=== PATIENT | male | born 1990 | race Caucasian/White ===

== ENCOUNTER 2025-01-25 14:11 | Inpatient (IN) | payer OTHER, SELFPAY ==
--- OUTSIDE RECORDS SUMMARY | 2025-01-25 02:17 | XMS_ITS | Encounter Summary ---
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 Date/Time Associated Diagnosis Comments CBC WITH AUTO DIFFERENTIAL STAT 01/25/2025 2:45 AM EDT CBC AND DIFFERENTIAL STAT 01/25/2025 2:45 AM EDT ETHANOL STAT 01/25/2025 2:45 AM EDT ACETAMINOPHEN LEVEL STAT 01/25/2025 2 :45 AM EDT SALICYLATE LEVEL STAT 01/25/2025 2:45 AM EDT COMPREHENSIVE METABOLIC PANEL STAT 01/25/2025 2:45 AM EDT documented in this encounter Results * CBC auto differential (01/25/2025 2:45 AM EDT) [facility] Signature WBC 6.2 4.8 - 10.8 K/[facility] LAB HEMETOLOGY METHOD 01/25/2025 3:28 AM EDT [facility] ([facility] LAB RBC 5.50 4.50 - 5.50 M/[facility] LAB HEMETOLOGY METHOD 01/25/2025 3:28 AM [facility] LAB Hemoglobin 15.4 13.5 - 17.5 g/dL LAB HEMETOLOGY METHOD 01/25/2025 3:28 AM [facility] LAB Hematocrit 47.7 42.0 - 54.0 % LAB HEMETOLOGY METHOD 01/25/2025 3:28 AM [facility] LAB MCV 86.1 79.0 - 98.0 FL LAB HEMETOLOGY METHOD 01/25/2025 3:28 AM [facility] LAB MCH 27.8 27.0 - 32.0 pcg LAB HEMETOLOGY METHOD 01/25/2025 3:28 AM [facility] LAB MCHC 32.3 32.0 - 37.0 g/dL LAB HEMETOLOGY METHOD 01/25/2025 3:28 AM [facility] LAB RDW 12.8 11.0 - 15.0 % LAB HEMETOLOGY METHOD 01/25/2025 3:28 AM [facility] LAB Platelets 236 130 - 400 K/mcL LAB HEMETOLOGY METHOD 01/25/2025 3:28 AM [facility] LAB MPV 10.2 7.0 - 11.0 FL LAB HEMETOLOGY METHOD 01/25/2025 3:28 AM [facility] LAB NRBC 0.0 <1.0 % LAB HEMETOLOGY METHOD 01/25/2025 3:28 AM [facility] LAB NRBC Absolute 0.00 <0.10 K/mcL LAB HEMETOLOGY METHOD 01/25/2025 3:28 AM [facility] Neutrophils Relative 50.3 % LAB HEMETOLOGY METHOD 01/25/2025 3:28 AM [facility] Lymphocytes Relative 37.0 % LAB HEMETOLOGY METHOD 01/25/2025 3:28 AM [facility] Monocytes Relative 10.0 % LAB HEMETOLOGY METHOD 01/25/2025 3:28 AM EDT [facility] Eosinophils Relative 1.9 % LAB HEMETOLOGY METHOD 01/25/2025 3:28 AM EDT [facility] Basophils Relative 0.5 % LAB HEMETOLOGY METHOD 01/25/2025 3:28 AM EDT [facility] Immature Granulocytes Relative 0.3 % LAB HEMETOLOGY METHOD 01/25/2025 3:28 AM EDT [facility] Neutrophils Absolute 3.10 1.50 - 7.00 K/mcL LAB HEMETOLOGY METHOD 01/25/2025 3:28 AM EDT [facility] Lymphocytes Absolute 2.28 1.00 - 5.00 K/mcL LAB HEMETOLOGY METHOD 01/25/2025 3:28 AM EDT [facility] Monocytes Absolute 0.62 0.20 - 1.00 K/mcL LAB HEMETOLOGY METHOD 01/25/2025 3:28 AM EDT [facility] Eosinophils Absolute 0.12 0.00 - 0.50 K/mcL LAB HEMETOLOGY METHOD 01/25/2025 3:28 AM EDT [facility] Basophils Absolute 0.03 0.00 - 0.20 K/mcL LAB HEMETOLOGY METHOD 01/25/2025 3:28 AM EDT [facility] Immature Granulocytes Absolute 0.02 0.00 - 0.03 K/mcL LAB HEMETOLOGY METHOD 01/25/2025 3:28 AM EDT [facility] Blood Venous blood specimen / Unknown Venipuncture / Unknown 01/25/2025 2:45 AM EDT 01/25/2025 3:19 AM EDT us Sunshine Andino MD LAB BLOOD ORDERABLES Final Res ult [facility] [address] [place] [address], [place] [phone] * (ABNORMAL) Salicylate level (01/25/2025 2:45 AM EDT) Salicylate Level <1.7(L) 2.0 - 29.0 mg/dL LAB CHEMISTRY METHOD 01/25/2025 3:50 AM EDT [facility] Blood Venous blood specimen / Unknown Venipuncture / Unknown 01/25/2025 2:45 AM EDT 01/25/2025 3:19 AM EDT us Sunhsine Andino MD LAB BLOOD ORDERABLES Final Res ult Performing Organization Address [facility]/ZIP Co de Phone Number [facility] [address] [place] [address], [place] [phone] * (ABNORMAL) Acetaminophen level (01/25/2025 2:45 AM EDT) Acetaminophen Level <2.0(L) 10.0 - 30.0 mcg/mL LAB CHEMISTRY METHOD 01/25/2025 4:03 AM EDT [facility] Blood Venous blood specimen / Unknown Venipuncture / Unknown 01/25/2025 2:45 AM EDT 01/25/2025 3:19 AM EDT us Sunshine Andino MD LAB BLOOD ORDERABLES Final Res ult [facility] [address] [place] [address], [place] [phone] * Ethanol (01/25/2025 2:45 AM EDT) Ethanol Level <3 0 - 10 mg/dL LAB CHEMISTRY METHOD 01/25/2025 3:52 AM EDT [facility] Blood Venous blood specimen / Unknown Venipuncture / Unknown 01/25/2025 2:45 AM EDT 01/25/2025 3:19 AM EDT us Sunshine Andino MD LAB BLOOD ORDERABLES Final Res ult [facility] [address] [place] [address], [place] [phone] * (ABNORMAL) Comprehensive metabolic panel (01/25/2025 2:45 AM EDT) Pathologist [facility] Sodium 137 133 - 145 mmol/L LAB CHEMISTRY METHOD 01/25/2025 3:52 AM [facility] Potassium 3.8 3.5 - 5.5 mmol/L LAB CHEMISTRY METHOD 01/25/2025 3:52 AM [facility] Chloride 104 96 - 110 mmol/L LAB CHEMISTRY METHOD 01/25/2025 3:52 AM [facility] CO2 27 21 - 32 mmol/L LAB CHEMISTRY METHOD 01/25/2025 3:52 AM [facility] Anion Gap 6 3 - 11 LAB CHEMISTRY METHOD 01/25/2025 3:52 AM [facility] Glucose 88 70 - 100 mg/dL LAB CHEMISTRY METHOD 01/25/2025 3:52 AM [facility] BUN 17 5 - 25 mg/dL LAB CHEMISTRY METHOD 01/25/2025 3:52 AM [facility] Creatinine 0.87 0.70 - 1.30 mg/dL LAB CHEMISTRY METHOD 01/25/2025 3:52 AM [facility] eGFR 115 >=60 mL/min/1. 73m2 LAB CHEMISTRY METHOD 01/25/2025 3:52 AM [facility] Comment:Calculation based on the Chronic Kidney Disease Epidemiology Collaboration (CKD-EPI) equation refit without adjustment for race. BUN/Creatinine Ratio 19.5 LAB CHEMISTRY METHOD 01/25/2025 3:52 AM T [facility] Calcium 8.9 8.5 - 10.5 mg/dL LAB CHEMISTRY METHOD 01/25/2025 3:52 AM T [facility] AST (SGOT) 33 10 - 42 unit/L LAB CHEMISTRY METHOD 01/25/2025 3:52 AM [facility] ALT (SGPT) 69(H) 10 - 60 unit/L LAB CHEMISTRY METHOD 01/25/2025 3:52 AM T [facility] Alkaline Phosphatase 83 42 - 121 unit/L LAB CHEMISTRY METHOD 01/25/2025 3:52 AM [facility] Total Protein 7.2 6.0 - 8.0 g/dL LAB CHEMISTRY METHOD 01/25/2025 3:52 AM [facility] Albumin 4.0 3.2 - 5.0 g/dL LAB CHEMISTRY METHOD 01/25/2025 3:52 AM [facility] Total Bilirubin 0.5 0.0 - 1.4 mg/dL LAB CHEMISTRY METHOD 01/25/2025 3:52 AM [facility] Blood Venous blood specimen / Unknown Venipuncture / Unknown 01/25/2025 2:45 AM EDT 01/25/2025 3:19 AM EDT us Sunshine Andino MD LAB BLOOD ORDERABLES Final Res ult [facility] [address] [place] [address], documented in this encounter Visit Diagnoses Diagnosis Auditory hallucinations- Primary Hallucinations Elevated ALT measurement Housing instability after recent homelessness documented in this encounter Administered Medications Active Administered Medications - up to 3 most recent administrations Medication Order MAR Action Action Date Dose Rate Site lisinopriL (PRINIVIL,ZESTRIL) tablet 5 mg 5 mg, oral, Daily, First dose on Tue01/25/25 at 0900 Given 01/25/2025 8:38 AM EDT 5 mg documented in this encounter Discontinued Medications Medication Sig Discontinue Reason Start Date End Da te melatonin 3 mg tablet Take 10 mg by mouth at bedtime. Alternate therapy 01/25/2025 documented as of this encounter Historical Medications * This list may reflect changes made after this encounter. calcium carbonate (TUMS) 500 mg (200 mg elemental calcium) chewable tablet Chew 1 tablet (500 mg total) 1 (one) time each day if needed for indigestion or heartburn. DM/acetaminophen /doxylamine (VICKS NYQUIL NIGHTTIME RELIEF ORAL) Take 30 mL by mouth at bedtime as needed (INSOMNIA). melatonin 5 mg tablet Take 1 tablet (5 mg total) by mouth at bedtime as needed for sleep. 12/13/2024 Heartburn Relief, famotidine, 10 mg tablet Take 1 tablet (10 mg total) by mouth 2 (two) times a day if needed for heartburn. diclofenac (VOLTAREN) 1 % topical gelIndications:K NEE PAIN 12/13/2024 albuterol HFA (PROAIR HFA ; PROVENTIL HFA ; VENTOLIN HFA) 90 mcg/actuation inhaler Inhale 2 puffs by mouth every 6 (six) hours if needed for wheezing. ibuprofen (ADVIL,MOTRIN) 600 mg tabletIndication s:BACK PAIN Take 1 tablet (600 mg total) by mouth every 6 (six) hours if needed for mild pain. omeprazole OTC (PriLOSEC OTC) 20 mg EC tablet Take 1 tablet (20 mg total) by mouth 1 (one) time each day if needed (ACID REFLUX). Do not crush, chew, or split. lisinopriL (PRINIVIL,ZESTRI L) 5 mg tablet Take 1 tablet (5 mg total) by mouth 1 (one) time each day. 07/17/2024 melatonin 3 mg tablet Take 10 mg by mouth at bedtime. added in this encounter Active and Recently Administered Medications Times are shown in EDT. Scheduled Medication Order 01/23/2025 01/24/2025 01/25/2025 lisinopriL (PRINIVIL,ZESTRIL) tablet 5 mg 5 mg, oral, Daily, First dose on Tue01/25/25 at 0900 0838 (Given - Provid er: Sera Bautista RN) pantoprazole (PROTONIX) EC tablet 40 mg 40 mg, oral, Every morning before breakfast, First dose on Tue01/25/25 at 0700, Do not crush, chew, or split. 0834 (Not Given - Pr ovider: Sera Bautista RN - Reason: Patient/Resident/Agent refused - education provided ) PRN Medication Order 01/23/2025 01/24/2025 01/25/2025 melatonin tablet 10.5 mg 10.5 mg (rounded from 10 mg), oral, Nightly PRN, sleep, Starting on Tue01/25/25 at 0400 documented in this encounter Orders Medications Ordered That Porfirio ht Not Have Been Administered Count Last Ordered Date First Ordered Date melatonin tablet 10.5 mg 1 01/25/2025 pantoprazole (PROTONIX) EC tablet 40 mg 1 0 01/25/2025 Diet Count Last Ordered Date First Orde red Date ADULT DIET 1 01/25/2025 Consult Count Last Ordered Date First Orde red Date IP CONSULT TO LAYER OUT 1 01/25/2025 Precaution Count Last Ordered Date First Orde red Date SUICIDE PRECAUTIONS 1 01/25/2025 Privilege Level Count Last Ordered Date First O rdered Date PATIENT SALES FLOOR MANAGER 1 01/25/2025 documented in this encounter Care Teams Commercial Real Estate Assistant Relationship Specialty Start Date End Date Physician, Pcp Unknown PCP - General 10/26/24 documented as of this encounter
--- OUTSIDE RECORDS SUMMARY | 2025-01-25 14:20 | XMS_ITS | Encounter Summary ---
Author Organization [facility] Address [address] [place] [address] Care Team Providers Care Air Conditioning Unit Tester Name Role Phone Physician, Pcp Unknown Primary Care Provider Alisa vailable Reason for Visit * Reason Onset Date Comments To complete SIOH-Assessment & Offer Available Re sources. 01/25/2025 Encounter Details Date Type Department Care Team (Late st Contact Info) Description 01/25/2025 Telephone [facility] Worker [facility] [address] [place] [address] Edgar Lugo Social History Tobacco Use Types Packs/Day Years [...] care for your loved ones. For example, childcare worker or elderly care for an older adult? [...] EST Travel History Travel Start Travel End [place] 12/25/2024 01/25/2025 documented as of this encounter Functional Status * Are you deaf or do you have serious difficulty hearing? Answer Date of Assessment Author No 01/25/2025 3:02 AM Geoffrey Carrizales RN * Are you blind or do you have serious difficulty seeing, even when wearing glasses? Answer Date of Assessment Author No 01/25/2025 3:02 AM Geoffrey Carrizales RN * Do you have serious difficulty [...] of Assessment Author No 01/25/2025 3:02 AM [facility] Geoffrey Alvarze RN documented as of this encounter Mental Status * Because of a physical, mental, or emotional condition, do you have serious difficulty concentrating, remembering, or making decisions? (5 years old or older) Answer Entry Date Author No 01/25/2025 3:02 AM EDT Geoffrey Alvarez RN documented in this encounter Progress Notes * Edgar Lugo - 01/25/2025 11:31 AM EDT Community Health Worker Note 01/25/25 11:31 AM EDT Patient: Russ Slaughter : 1990 Age: 34 y.o. Insurance: Payor: [employer] [place] [employer] / Plan: [employer] [place] [employer] / Product Type: *No Product type* / Visit Type: Telephone Call Primary Care Doctor: Pcp Unknown Physician Social Influencers of Health Screening Completed? SIOH assessment completed with the patient. [facility] mail the patient a listing of resources for housing agencies in his local area and well patient was enrolled to [facility] PT-2 Ride for only his medical related appointments, Patient can also call his ride provider [employer] to schedule any medical ride appointments by calling or . Next Follow-up [T.B.A] - Patient will follow up with [facility] if necessary if in the need of any resources. Total Minutes Spent: 3 min Wire Products Inspector Flowsheet Needed: no Edgar Lugo, JOE, CAC, QBS [facility] ACO Case Management Community Health Worker [address] [address] Office: [phone] documented in this encounter Plan of Treatment Upcoming Encounters Date Type Department Care Team (Late st Contact Info) Description 02/28/2025 1:00 PM EDT Consult Gastroenterology - [facility] [address] [place] [address] Chris Foster MD [address] [place] [address] documented as of this encounter Interventions Community Resource Recommendations Community Resource Services Recommended Domains Addressed Status Status Reason/Outcome Date/Time Rayne Buchanan - Affordable Housing Shelter Housing, Residential Housing Housing Instability 01/25/2025 11:34 AM EDT [facility] - HUD Public Housing Program Shelter Housing, Public Housing, Residential Housing Housing Instability 01/25/2025 11:34 AM EDT [facility] - HUD Public Housing Program Shelter Housing, Public Housing, Residential Housing Housing Instability 01/25/2025 11:34 AM EDT [employer] - Affordable Housing Shelter Housing, Residential Housing Housing Instability 01/25/2025 11:34 AM EDT [place] [facility] [employer] [facility] [employer] ([place] - [employer] Help Find Housing Housing Instability 01/25/2025 11:34 AM EDT [facility] - Transitional Housing Short Term Housing Housing Instability 01/25/2025 11:34 AM EDT [facility] [employer] - Housing Opportunities for People Wit Help Find Housing Housing Instability 01/25/2025 11:34 AM EDT [facility] - Supportive Housing Project Shelter Housing, Residential Housing, Safe Housing Housing Instability 01/25/2025 11:34 AM EDT [employer] [facility] - Affordable Housing Appian Developer Housing Housing Instability 01/25/2025 11:34 AM EDT [facility] - Housing Counseling Homebuyer Education, Housing Advice Housing Instability 01/25/2025 11:34 AM EDT documented as of this encounter Visit Diagnoses Not on filedocumented in this encounter Care Teams Air Conditioning Unit Tester Relationship Specialty Start Date End Date Physician, Pcp Unknown PCP - General 10/26/24 documented as of this encounter
--- OUTSIDE RECORDS SUMMARY | 2025-01-25 14:20 | XMS_ITS | Clinical Summary ---
Author Organization [facility] Address [address] [place] [address] Phone Care Team Providers Care Industrial Relations Analyst Name Role Phone Physician, Pcp Unknown Primary Care Provider Alisa vailable Allergies Active Allergy Reactions Criticality Noted Date Comments Amantadine Hcl Other 11/20/2009 Facial twitches Divalproex Anxiety 07/21/2024 Risperidone Hallucinations 07/21/2024 Medications lisinopriL (PRINIVIL,ZEST RIL) 5 mg tablet Take 1 tablet (5 mg total) by mouth 1 (one) time each day. 5 Active omeprazole OTC (PriLOSEC OTC) 20 mg EC tablet Take 1 tablet (20 mg total) by mouth 1 (one) time each day if needed (ACID REFLUX). Do not crush, chew, or split. Active ibuprofen (ADVIL,MOTRIN) 600 mg tabletIndicati ons:BACK PAIN Take 1 tablet (600 mg total) by mouth every 6 (six) hours if needed for mild pain. Active albuterol HFA (PROAIR HFA ; PROVENTIL HFA ; VENTOLIN HFA) 90 mcg/actuation inhaler Inhale 2 puffs by mouth every 6 (six) hours if needed for wheezing. Active diclofenac (VOLTAREN) 1 % topical gelIndications :KNEE PAIN 5 Active Heartburn Relief, famotidine, 10 mg tablet Take 1 tablet (10 mg total) by mouth 2 (two) times a day if needed for heartburn. Active melatonin 5 mg tablet Take 1 tablet (5 mg total) by mouth at bedtime as needed for sleep. 5 Active DM/acetaminoph en/doxylamine (VICKS NYQUIL NIGHTTIME RELIEF ORAL) Take 30 mL by mouth at bedtime as needed (INSOMNIA). Active calcium carbonate (TUMS) 500 mg (200 mg elemental calcium) chewable tablet Chew 1 tablet (500 mg total) 1 (one) time each day if needed for indigestion or heartburn. Active omeprazole (PriLOSEC) [address] capsuleIndicat ions:Reflux gastritis Take 1 capsule (20 mg total) by mouth 1 (one) time each day. Do not crush or chew. 30 each 5 025 melatonin 3 mg tablet Take 10 mg by mouth at bedtime. 025 Discontinu ed(Alterna te therapy) Active Problems No known active problems Encounters Date Type Department Care Team Description 01/25/2025 2:17 AM EDT - 01/25/2025 1:45 PM EDT Emergency [facility] Emergency [address] [place] [phone] Sunshine Andino MD Gordon, Ruth, MD Auditory hallucinations (Primary Dx); Elevated ALT measurement; Housing instability after recent homelessness Discharge Disposition: [facility] 01/25/2025 Telephone [facility] [address] [place] [phone] Edgar Lugo 01/11/2025 2:30 PM EDT Ancillary Procedure [facility] [address] [place] [address] [place] [phone] Chest pain, unspecified type 12/18/2024 9:08 PM EDT - 12/18/2024 9:21 PM EDT Emergency [facility] Emergency [address] [place] [phone] Discharge Disposition: Home or Self Care 12/01/2024 1:03 AM EDT - 12/01/2024 3:59 AM EDT Emergency [facility] Emergency [address] [place] [phone] Rome Michael MD Chest pain, unspecified type (Primary Dx); Reflux gastritis Discharge Disposition: Home or Self Care 10/26/2024 12:37 AM EDT - 10/26/2024 2:39 AM EDT Emergency [facility] Emergency [address] [place] [address] Discharge Disposition: Home or Self Care from Last 3 Months Surgical History Surgery Date Site/Laterality Comments OTHER SURGICAL HISTORY PROCEDURE: SKIN GRAFT <100SQCM; COMMENT: fell off skate board Medical History Medical History Date Comments Knee pain, right 02/26/2011 DX:Knee pain, r ight Chronic back pain 01/30/2010 DX:Chronic puma k pain Asthma Anxiety Hypertension Family History Relation Name Status Comments Brother Alive Father Alive Mother Alive oa, fibromyalgi a, asthma, graves Social History Tobacco Use Types Packs/Day Years Used Date Smoking Tobacco: Every Day Cigarettes Smokeless Tobacco: Never Tobacco Cessation:Ready to Q uit: No; Counseling Given: Not Answered Alcohol Use Standard Drinks/Week Comments No 0 [...] for your loved ones. For example, childcare provider or elderly care for an older adult? [...] EST Travel History Travel Start Travel End [place] 12/25/2024 01/25/2025 Obstetrics History Last Filed Vital Signs Vital Sign Reading [...] Mass Index 50.27 01/25/2025 2:48 AM EDT Plan of Treatment Upcoming Encounters Date Type Department Care Team (Late st Contact Info) Description 02/28/2025 1:00 PM EDT Consult Gastroenterology - [place] [phone] [facility] [address] [facility] [address] [place] [address] Chris Foster MD [address] [place] [address] Health Maintenance Due Date Last Done Comments Hepatitis A Vaccines (1 of 2 - Risk 2-dose series) 2008 Hepatitis B Vaccines (1 of 3 - 19+ 3-dose series) 2008 Pneumococcal Vaccine: Pediat rics (0 to 5 Years) and At-Risk Patients (6 to 49 Years) (1 of 2 - PCV) 2008 Cholesterol Screening (Lipid Panel) 04/10/2022 HIV Screening 04/10/2022 Hepatitis C Screening 04/10/2022 Depression Screening 05/09/2024 COVID-19 Vaccine (1 - 2023-2 5 season) 2025 Influenza Vaccine (#1) 2025 Social Influencers of Health Screening 01/25/2026 01/25/2025 DTaP,Tdap,and Td Vaccines (2 - Td or Tdap) 05/18/2034 05/18/2024 RSV Immunization Adult Patie nts (1 - 1-dose 75+ series) 2064 HIB Vaccines Aged Out No longer eligi ble based on patient's age to complete this topic HPV Vaccines Aged Out No longer eligi ble based on patient's age to complete this topic IPV Vaccines Aged Out No longer eligi ble based on patient's age to complete this topic MMR Vaccines Aged Out No longer eligi ble based on patient's age to complete this topic Meningococcal ACWY Vaccine Aged Out N o longer eligible based on patient's age to complete this topic Meningococcal B Vaccine Aged Out No l onger eligible based on patient's age to complete this topic RSV Immunization Patients Un james 20 months Aged Out No longer eligible b ased on patient's age to complete this topic Varicella Vaccines Aged Out No longer eligible based on patient's age to complete this topic Interventions Community Resource Recommendations Community Resource Services Recommended Domains Addressed Status Status Reason/Outcome Date/Time Rayne Buchanan [facility] [employer] Housing, Residential Housing Housing Instability 01/25/2025 11:34 AM EDT [facility] - HUD Public Housing Program [employer] Housing, Public Housing, Residential Housing Housing Instability 01/25/2025 11:[address] [facility] - HUD Public Housing Program [employer] Housing, Public Housing, Residential Housing Housing Instability 01/25/2025 11:34 AM EDT [facility] - Affordable Housing [facility] Housing, Residential Housing Housing Instability 01/25/2025 11:34 AM EDT [place] [facility] [employer] [facility] ([facility]) - Emergenc Help Find Housing Housing Instability 01/25/2025 11:34 AM EDT [facility] - Transitional Housing Short Term Housing Housing Instability 01/25/2025 11:34 AM EDT [facility] [employer] ([employer]) - Housing Opportunities for People Wit Help Find Housing Housing Instability 01/25/2025 11:34 AM EDT [facility] - Supportive Housing Project [employer] Housing, Residential Housing, Safe Housing Housing Instability 01/25/2025 11:34 AM EDT [employer] ([employer]) - Affordable Housing Gasoline [employer] Housing Housing Instability 01/25/2025 11:34 AM EDT [facility] - Housing Counseling Homebuyer Education, Housing Advice Housing Instability 01/25/2025 11:34 AM EDT from Last 12 Months Procedures Procedure Name Priority Date/Time Associated Diagnosis Comments CBC WITH AUTO DIFFERENTIAL STAT 01/25/2025 2:45 AM EDT SALICYLATE LEVEL STAT 01/25/2025 2:45 AM EDT ACETAMINOPHEN LEVEL STAT 01/25/2025 2 :45 AM EDT ETHANOL STAT 01/25/2025 2:45 AM EDT COMPREHENSIVE METABOLIC PANEL STAT 01/25/2025 2:45 AM EDT CBC AND DIFFERENTIAL STAT 01/25/2025 2:45 AM EDT STRESS ECHOCARDIOGRAM EXERCISE WITH CONTRAST Routine 01/11/2025 3:03 PM EDT Chest pain, unspecified type ECG ANNOTATED 12/03/2024 TROPONIN I HIGH SENSITIVITY Timed 12/01/2024 2:12 AM EDT XR CHEST 2 VIEWS STAT 12/01/2024 1:29 AM EDT CBC WITH AUTO DIFFERENTIAL STAT 12/01/2024 1:23 AM EDT B-TYPE NATRIURETIC PEPTIDE STAT 12/01/2024 1:23 AM EDT MAGNESIUM STAT 12/01/2024 1:23 AM EDT LIPASE STAT 12/01/2024 1:23 AM EDT COMPREHENSIVE METABOLIC PANEL STAT 12/01/2024 1:23 AM EDT CBC AND DIFFERENTIAL STAT 12/01/2024 1:23 AM EDT TROPONIN I HIGH SENSITIVITY Timed 12/01/2024 1:23 AM EDT ECG 12-LEAD STAT 12/01/2024 1:22 AM EDT from Last 3 Months Results * CBC auto differential (01/25/2025 2:45 AM EDT) Only the most recent of2 resultswithin the time period is included. WBC 6.2 4.8 - 10.8 K/mcL LAB HEMETOLOGY METHOD 01/25/2025 3:28 AM EDT [facility] RBC 5.50 4.50 - 5.50 M/mcL LAB HEMETOLOGY METHOD 01/25/2025 3:28 AM EDT [facility] Hemoglobin 15.4 13.5 - 17.5 g/dL LAB HEMETOLOGY METHOD 01/25/2025 3:28 AM EDT [facility] Hematocrit 47.7 42.0 - 54.0 % LAB HEMETOLOGY METHOD 01/25/2025 3:28 AM EDT [facility] MCV 86.1 79.0 - 98.0 FL LAB HEMETOLOGY METHOD 01/25/2025 3:28 AM EDT [facility] MCH 27.8 27.0 - 32.0 pcg LAB HEMETOLOGY METHOD 01/25/2025 3:28 AM [facility] MCHC 32.3 32.0 - 37.0 g/dL LAB HEMETOLOGY METHOD 01/25/2025 3:28 AM [facility] RDW 12.8 11.0 - 15.0 % LAB HEMETOLOGY METHOD 01/25/2025 3:28 AM [facility] Platelets 236 130 - 400 K/mcL LAB HEMETOLOGY METHOD 01/25/2025 3:28 AM [facility] MPV 10.2 7.0 - 11.0 FL LAB HEMETOLOGY METHOD 01/25/2025 3:28 AM [facility] NRBC 0.0 <1.0 % LAB HEMETOLOGY METHOD 01/25/2025 3:28 AM [facility] NRBC Absolute 0.00 <0.10 K/mcL LAB HEMETOLOGY METHOD 01/25/2025 3:28 AM [facility] Neutrophils Relative 50.3 % LAB HEMETOLOGY METHOD 01/25/2025 3:28 AM [facility] Lymphocytes Relative 37.0 % LAB HEMETOLOGY METHOD 01/25/2025 3:28 AM [facility] Monocytes Relative 10.0 % LAB HEMETOLOGY METHOD 01/25/2025 3:28 AM [facility] Eosinophils Relative 1.9 % LAB HEMETOLOGY METHOD 01/25/2025 3:28 AM [facility] Basophils Relative 0.5 % LAB HEMETOLOGY METHOD 01/25/2025 3:28 AM [facility] Immature Granulocytes Relative 0.3 % LAB HEMETOLOGY METHOD 01/25/2025 3:28 AM EDT [facility] Neutrophils Absolute 3.10 1.50 - 7.00 K/[facility] LAB HEMETOLOGY METHOD 01/25/2025 3:28 AM EDT [facility] Lymphocytes Absolute 2.28 1.00 - 5.00 K/[facility] LAB HEMETOLOGY METHOD 01/25/2025 3:28 AM EDT [facility] Monocytes Absolute 0.62 0.20 - 1.00 K/mcL LAB HEMETOLOGY METHOD 01/25/2025 3:28 AM EDT [facility] Eosinophils Absolute 0.12 0.00 - 0.50 K/[facility] LAB HEMETOLOGY METHOD 01/25/2025 3:28 AM EDT [facility] Basophils Absolute 0.03 0.00 - 0.20 K/mcL LAB HEMETOLOGY METHOD 01/25/2025 3:28 AM EDT [facility] Immature Granulocytes Absolute 0.02 0.00 - 0.03 K/mcL LAB HEMETOLOGY METHOD 01/25/2025 3:28 AM EDT [facility] Blood Venous blood specimen / Unknown Venipuncture / Unknown 01/25/2025 2:45 AM EDT 01/25/2025 3:19 AM EDT us Sunshine Andino MD LAB BLOOD ORDERABLES Final Res ult [facility] [address] [place] [address], * Ethanol (01/25/2025 2:45 AM EDT) Ethanol Level <3 0 - 10 mg/dL LAB CHEMISTRY METHOD 01/25/2025 3:52 AM EDT [facility] Blood Venous blood specimen / Unknown Venipuncture / Unknown 01/25/2025 2:45 AM EDT 01/25/2025 3:19 AM EDT Sunshine Andino MD LAB BLOOD ORDERABLES Final Res ult Performing Organization Address [facility]/ZIP Co de Phone Number [facility] [address] [place] [address], [place] [phone] * (ABNORMAL) Acetaminophen level (01/25/2025 2:45 AM EDT) Acetaminophen Level <2.0(L) 10.0 - 30.0 mcg/mL LAB CHEMISTRY METHOD 01/25/2025 4:03 AM EDT [facility] Blood Venous blood specimen / Unknown Venipuncture / Unknown 01/25/2025 2:45 AM EDT 01/25/2025 3:19 AM EDT Sunshine Andino MD LAB BLOOD ORDERABLES Final Res ult Performing Organization Address [facility] de Phone Number [facility] [address] [place] [address], [place] [phone] * (ABNORMAL) Salicylate level (01/25/2025 2:45 AM EDT) Salicylate Level <1.7(L) 2.0 - 29.0 mg/dL LAB CHEMISTRY METHOD 01/25/2025 3:50 AM EDT [facility] Blood Venous blood specimen / Unknown Venipuncture / Unknown 01/25/2025 2:45 AM EDT 01/25/2025 3:19 AM EDT us Sunshine Andino MD LAB BLOOD ORDERABLES Final Res ult Performing Organization Address City/[facility]/ZIP Co de Phone Number [facility] [address] [place] [address], [place] [phone] * (ABNORMAL) Comprehensive metabolic panel (01/25/2025 2:45 AM EDT) Only the most recent of2 resultswithin the time period is included. Sodium 137 133 - 145 mmol/L LAB CHEMISTRY METHOD 01/25/2025 3:52 AM [facility] Potassium 3.8 3.5 - 5.5 mmol/L LAB CHEMISTRY METHOD 01/25/2025 3:52 AM [facility] Chloride 104 96 - 110 mmol/L LAB CHEMISTRY METHOD 01/25/2025 3:52 AM [facility] CO2 27 21 - 32 mmol/L LAB CHEMISTRY METHOD 01/25/2025 3:52 AM [facility] Anion Gap 6 3 - 11 LAB CHEMISTRY METHOD 01/25/2025 3:52 AM [facility] Glucose 88 70 - 100 mg/dL LAB CHEMISTRY METHOD 01/25/2025 3:52 AM [facility] BUN 17 5 - 25 mg/dL LAB CHEMISTRY METHOD 01/25/2025 3:52 AM [facility] Creatinine 0.87 0.70 - 1.30 mg/dL LAB CHEMISTRY METHOD 01/25/2025 3:52 AM [facility] eGFR 115 >=60 mL/min/1. 73m2 LAB CHEMISTRY METHOD 01/25/2025 3:52 AM [facility] Comment:Calculation based on the Chronic Kidney Disease Epidemiology Collaboration (CKD-EPI) equation refit without adjustment for race. BUN/Creatinine Ratio 19.5 LAB CHEMISTRY METHOD 01/25/2025 3:52 AM [facility] Calcium 8.9 8.5 - 10.5 mg/dL LAB CHEMISTRY METHOD 01/25/2025 3:52 AM [facility] AST (SGOT) 33 10 - 42 unit/L LAB CHEMISTRY METHOD 01/25/2025 3:52 AM [facility] ALT (SGPT) 69(H) 10 - 60 unit/L LAB CHEMISTRY METHOD 01/25/2025 3:52 AM EDT [facility] Alkaline Phosphatase 83 42 - 121 unit/L LAB CHEMISTRY METHOD 01/25/2025 3:52 AM EDT [facility] Total Protein 7.2 6.0 - 8.0 g/dL LAB CHEMISTRY METHOD 01/25/2025 3:52 AM EDT [facility] Albumin 4.0 3.2 - 5.0 g/dL LAB CHEMISTRY METHOD 01/25/2025 3:52 AM EDT [facility] Total Bilirubin 0.5 0.0 - 1.4 mg/dL LAB CHEMISTRY METHOD 01/25/2025 3:52 AM EDT [facility] Blood Venous blood specimen / Unknown Venipuncture / Unknown 01/25/2025 2:45 AM EDT 01/25/2025 3:19 AM EDT us Sunshine Andino MD LAB BLOOD ORDERABLES Final Res ult [facility] [address] [place] [address], * (ABNORMAL) STRESS ECHOCARDIOGRAM EXERCISE WITH CONTRAST (01/11/2025 3:03 PM EDT) Target HR 157 bpm CV PACS STRESS Baseline HR 88 bpm CV PACS STRESS Peak HR 161 bpm CV PACS STRESS Estimated workload 7.1 METS CV PACS STRESS Percent HR 87 % CV PACS STRESS Exercise/injec tion duration (min) 5 min CV PACS STRESS Exercise/injec tion duration (sec) 59 sec CV PACS STRESS Max HR Percent 87 % CV PA CS STRESS Baseline SBP 152 mmHg CV PACS STRESS Baseline DBP 88 mmHg CV PACS STRESS Peak SBP 190 mmHg CV PACS STRESS Peak DBP 98 mmHg CV PACS STRESS Rate Pressure Product 30,590.0 mmHg*bpm CV PACS STRESS LVIDD 5.9(A) 4.2 - 5.8 cm CV PACS STRESS LVPWD 0.9 0.6 - 1.0 cm CV PACS STRESS IVSD 1.0 0.6 - 1.0 cm CV PACS STRESS LV Mass 2D 224(A) 96 - 200 g CV PACS STRESS Relative Wall Thickness ratio 0.32 0.24 - 0.42 CV PACS STRESS Anatomical Region Laterality Modality Ultrasound Narrative 01/21/2025 1:35 PM EDT Resting echo showed mildly dilated left ventricle with normal wall thickness and systolic function. Normal regional wall motion with an ejection fraction of 60 to 65%. Exercise stress test was performed. The patient was only able to exercise for 5 minutes and 59 seconds achieving 87% of max predicted heart rate and a 7.1 METS workload. Exercise capacity was poor for age and gender. Normal blood pressure response. There were no ischemic ECG changes or arrhythmias noted with exercise. The patient stopped due to fatigue and shortness of breath. There was appropriate augmentation of all regional wall segments with stress. The left ventricular cavity did not dilate with stress. Normal exercise stress echocardiogram without evidence of ischemia or infarction at a diagnostic heart rate. Patient's exercise capacity is poor for age and gender. Left Ventricle Left ventricle cavity is mildly dilated. Wall thickness is normal. Systolic function is normal with an ejection fraction of 60-65%. There are no regional LV wall motion abnormalities. Right Ventricle Right ventricle cavity appears normal. Systolic function is normal. Study Details Overall the study quality was technically difficult. Stress Findings A Yrn protocol stress test was performed. Overall, the patient's exercise capacity was poor. The patient reached stage 2. Total stress time was 5 min and 59 sec. The test was stopped because the patient experienced fatigue and shortness of breath. The patient's hemodynamic response was adequate for diagnosis. Blood pressure demonstrated a normal response. Heart rate demonstrated a normal response. Onset of symptoms occurred at Stage 2 of the protocol. The patient reported shortness of breath during the stress test. ECG 34-year-old male who is seen in the emergency room for chest discomfort, has history of hypertension, hyperlipidemia, former cigarette smoker, and positive family history for CAD, here to rule out ischemia. Patient not on lisinopril during testing. Baseline EKG: Normal sinus rhythm There were no arrhythmias during stress. There were no arrhythmias during recovery. The result of the stress ECG was negative for ischemia. Echo Post Stress Left ventricular cavity size decreased from baseline. Left ventricular systolic function improved from baseline. Normal wall motion, unchanged from baseline. Nuclear Measurements The study is negative and shows no echocardiographic evidence of ischemia. Rome Michael MD CV ECHO PROCEDURES Final Re sult * ECG-Annotated (12/03/2024) Provider Onbase ECG ORDERABLES Final Result * Troponin I high sensitivity (12/01/2024 2:12 AM EDT) Only the most recent of2 resultswithin the time period is included. High Sensitivity Troponin I 7 <=79 ng/L LAB CHEMISTRY METHOD 12/01/2024 2:57 AM EDT [facility] Blood Venous blood specimen / Unknown Venipuncture / Unknown 12/01/2024 2:12 AM EDT 12/01/2024 2:22 AM EDT Narrative [facility] - 12/01/2024 2:57 AM EDT High levels of biotin in samples may falsely decrease hsTroponin values. Use caution when interpreting hsTroponin results in patients taking biotin who exhibit renal impairment (eGFR <60) or in patients taking more than 20 mg/day of biotin. Rome Michael MD LAB BLOOD ORDERABLES Final Result [facility] [address] [place] [address], [place] [phone] * XR Chest 2 Views (12/01/2024 1:29 AM EDT) Anatomical Region Laterality Modality Body Radiographic Lynnette ging 12/01/2024 9:12 AM EDT Impressions 12/01/2024 9:13 AM EDT Impression: Stable radiographic appearance of the chest. No active pulmonary process identified. [employer] [place] ([id number]) -------- FINAL REPORT -------- Dictated By: Swathi Alaniz Dictated Date: 12/01/2024 09:12 ET Assigned Physician: Swathi Alaniz Reviewed and Electronically Signed By: Swathi Alaniz Signed Date: 12/01/2024 09:13 ET Workstation ID: [id number] Transcribed By: Self Edit Transcribed Date: 12/01/2024 09:12 ET Narrative 12/01/2024 9:13 AM EDT History: Chest pain. Comparison: 07/09/24 Findings: PA and lateral views. This is a poor inspiration, similar to previous. The cardiac silhouette remains normal in size. The jose d are not enlarged. The pulmonary vascularity is within normal limits. The lungs are clear. The costophrenic angles are sharp. Procedure Note Swathi Alaniz MD - 12/01/2024 History: Chest pain. Comparison: 07/09/24 Findings: PA and lateral views. This is a poor inspiration, similar to previous. Thecardiac silhouette remains normal in size. The jose d are not enlarged. Thepulmonary vascularity is within normal limits. The lungs are clear. Thecostophrenic angles are sharp. IMPRESSION: Impression: Stable radiographic appearance of the chest. No active pulmonary processidentified. [employer] PA ([id number]) -------- FINAL REPORT -------- Dictated By: Swathi Alaniz Dictated Date: 12/01/2024 09:12 ET Assigned Physician: Swathi Alaniz Reviewed and Electronically Signed By: Swathi Alaniz Signed Date: 12/01/2024 09:13 ET Workstation ID: [id number] Transcribed By: Self Edit Transcribed Date: 12/01/2024 09:12 ET us Rome Michael MD IMG XR PROCEDURES Final Res ult * B-type natriuretic peptide (12/01/2024 1:23 AM EDT) BNP 12 <=100 pcg/mL LAB CHEMISTRY METHOD 12/01/2024 2:56 AM EDT [facility] Blood Venous blood specimen / Unknown Venipuncture / Unknown 12/01/2024 1:23 AM EDT 12/01/2024 2:22 AM EDT Rome Michael MD LAB BLOOD ORDERABLES Final Result Performing Organization Address [facility]/ZIP Co de Phone Number [facility] [address] [place] [address], [place] [phone] * Magnesium (12/01/2024 1:23 AM EDT) Magnesium 2.2 1.9 - 2.6 mg/dL LAB CHEMISTRY METHOD 12/01/2024 2:54 AM EDT [facility] Blood Venous blood specimen / Unknown Venipuncture / Unknown 12/01/2024 1:23 AM EDT 12/01/2024 2:22 AM EDT Rome Michael MD LAB BLOOD ORDERABLES Final Result Performing Organization Address [facility]/ZIP Co de Phone Number [facility] [address] [place] [address], [place] [phone] * Lipase (12/01/2024 1:23 AM EDT) Lipase 20 13 - 75 unit/L LAB CHEMISTRY METHOD 12/01/2024 2:54 AM EDT [facility] Blood Venous blood specimen / Unknown Venipuncture / Unknown 12/01/2024 1:23 AM EDT 12/01/2024 2:22 AM EDT Rome Michael MD LAB BLOOD ORDERABLES Final Result [facility] [address] [place] [address], [place] [phone] * ECG 12 lead (12/01/2024 1:22 AM EDT) Ventricular Rate ECG 86 BPM GEMUSE Atrial Rate 86 BPM GEMUSE P-R Interval 168 ms GEMUSE QRS Duration 90 ms GEMUSE Q-T Interval 376 ms GEMUSE QTc 449 ms GEMUSE P Wave [place] 47 degrees GEMUSE R [place] 15 degrees GEMUSE T [place] 33 degrees GEMUSE ECG Interpretation Normal sinus rhythm Normal ECG When compared with ECG of 09-JUL-2024 19:43, Non-specifi c change in ST segment in Anterior leads Confirmed by Melissa AGRAWAL JAMES ([id number]) on 12/01/2024 5:34:34 PM GEMUSE 12/01/2024 1:22 AM EDT 12/01/2024 5:34 PM EDT us Rome Michael MD ECG ORDERABLES Final Resul t GEMUSE from Last 3 Months Insurance [facility] MEDICAID ADVANTAGE [address] [place] [address] Care Teams Industrial Relations Analyst Relationship Specialty Start Date End Date Physician, Pcp Unknown PCP - General 10/26/24
--- OUTSIDE RECORDS SUMMARY | 2025-01-25 14:20 | XMS_ITS ---
Author Organization [facility] Address [address] [place] [address] Phone Care Team Providers Care After School Tutor Name Role Phone Physician, Pcp Unknown Primary Care Provider Alisa vailable Community Health Worker Program Status:Ongoing (Active) Start date:01/25/2025 Enrollment date:01/25/2025 Enrollment reason:ACO Current support & services provided:Adult Related service episodes:[facility] - Housing (Active), [facility] - Transportation (Active) Overview Community Health Worker Program Case Team Name Relationship Phone Edgar Lugo Community Health Worker(Responsi ble Staff) Continued Care and Services Coordination
--- OUTSIDE RECORDS SUMMARY | 2025-01-25 14:20 | XMS_ITS ---
Author Organization [facility] Address [address] [place] [address] Phone Care Team Providers Care Calender Wind Up Helper Name Role Phone Physician, Pcp Unknown Primary Care Provider Alisa vailable [facility] - Transportation Status:Ongoing (Active) Start date:01/25/2025 Enrollment date:01/25/2025 Enrollment reason:ACO Related social drivers of health:Transportation Related program episode:Community Health Worker Program (Active) Overview Community Health Worker Program - Transportation Service Episode Case Team Name Relationship Phone Edgar Lugo Community Health Worker(Responsi ble Staff) Continued Care and Services Coordination
--- OUTSIDE RECORDS SUMMARY | 2025-01-25 14:20 | XMS_ITS ---
Author Organization [facility] Address [address] [place] [address] Phone Care Team Providers Care Flare Breaker Name Role Phone Physician, Pcp Unknown Primary Care Provider Alisa vailable [facility] - Housing Status:Ongoing (Active) Start date:01/25/2025 Enrollment date:01/25/2025 Enrollment reason:ACO Related social drivers of health:Housing Instability Related program episode:Community Health Worker Program (Active) Overview Housing service of Community Health Worker Program Case Team Name Relationship Phone Edgar Lugo Community Health Worker(Responsi ble Staff) Continued Care and Services Coordination
[2025-01-25 15:00] VITALS: BP 156/93; PULSE 91; RESP 18; TEMP 36.6; O2SAT 96
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
[2025-01-25 17:59] VITALS: BMI 46.7
[2025-01-25 20:00] VITALS: RESP 16
[2025-01-26 08:00] VITALS: BP 139/81; PULSE 70; TEMP 36.4; O2SAT 96
--- NOTE | 2025-01-26 09:54 | HO.PSYADMNOT ---
HPI Date of Service: 01/26/25 Chief Complaint: SI Sources of Information: patient interviewed, chart reviewed and crisis/core team assessment reviewed HPI Subjective Notes: Willett Warning and 3 Day Narrative: pt seen on 01/26/25 at 9:55am Patient is a 34-year-old male with history of depression, anxiety, Level 1 sex offender, who presents for SI. Patient has not been on medications since adolescence. He reports history of depression and anxiety over the past years but said he has been able to cope with it without medications and that it is overall mild to moderate.? A week ago he went to visit his friend in [place] and thoroughly enjoyed himself.? Upon return however his depression spiked as he compared his life here in [place], where he is homeless, to his experience in [place]. Patient said he thinking about all his problems started having suicidal thoughts; he had brief AH had the thought what if I just ended my life right now? he says he started walking to the bridge, considering jumping but his father held him back.? He reports that he realized he did not want to but that he needed help so self presented to the ED. patient currently denies any SI now. Patient denies history of manic episodes and adulthood; denies drug or alcohol use; denies AVH or paranoid ideation Past Psychiatric History: No history of psychiatric admissions since adolescence Patient was on several medication trials during adolescence including Depakote, Risperdal and Geodon. 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 Diagnostics Vital Signs (24Hr): Vital Signs - 24 hr 01/25/25 15:00 01/25/25 20:00 01/26/25 08:00 Temperature 97.8 F 97.5 F Pulse Rate 91 70 Respiratory Rate 18 16 Blood Pressure 156/93 H 139/81 Pulse Oximetry 96 96 Oxygen Delivery Method Room Air Room Air BMI result Body Mass Index 46.7 Labs 01/26/25 10:08 Meds/Allergies Meds Home Medications ?Medication ?Instructions ?Recorded ?Confirmed ?Type diclofenac sodium 1 % topical gel See Rx Instructions .Route .COMPLEX 01/25/25 01/25/25 History lisinopril 5 mg tablet 5 mg PO DAILY 01/25/25 01/25/25 History melatonin 5 mg tablet 10 mg PO BEDTIME insomnia 01/25/25 01/25/25 History omeprazole 20 mg capsule,delayed 20 mg PO ONCE 01/25/25 01/25/25 History release Allergies Allergies Allergy/AdvReac Type Severity Reaction Status Date / Time amantadine Allergy Unknown Verified 01/25/25 17:59 divalproex sodium (From Allergy Unknown Verified 01/25/25 17:59 Depakote) risperidone Allergy Unknown Verified 01/25/25 17:59 Mental Status Exam Mental Status Exam Narrative: Pt is alert and oriented; behavior is cooperative, isolative, calm; patient is not in distress; dressed in hospital attire, unkempt, malodorous; mood is described as better and affect congruent; eye contact appropriate; Speech is normal rate, volume and prosody and not pressured; some psychomotor retardation present; thought process is organized and goal directed; Thought content is on tx; otherwise pertinent to relevant topics and without any delusional content, paranoid ideations or grandiosity; denies any SI/HI. Denies AVH and there is no evidence of perceptual disturbance. Patients insight and judgment impaired but seem to be improved Assessment & Plan Assessment & Plan (1) MDD (major depressive disorder), recurrent episode, moderate: Status: Acute Code(s): F33.1 - Major depressive disorder, recurrent, moderate Plan Patient is a 34-year-old male with history of depression, anxiety, Level 1 sex offender, who presents for SI. Patient has not been on medications since adolescence. He reports history of depression and anxiety over the past years but said he has been able to cope with it without medications and that it is overall mild to moderate.? A week ago he went to visit his friend in [place] and thoroughly enjoyed himself.? Upon return however his depression spiked as he compared his life here in [place], where he is homeless, to his experience in [place]. Patient said he thinking about all his problems started having suicidal thoughts; he had brief AH had the thought what if I just ended my life right now? he says he started walking to the bridge, considering jumping but his father held him back.? He reports that he realized he did not want to but that he needed help so self presented to the ED. patient currently denies any SI now. Patient denies history of manic episodes and adulthood; denies drug or alcohol use; denies AVH or paranoid ideation Formulation/clinical reasoning: Patient reports ongoing [id number] depression; says however that he is typically able to cope with it and that he thinks this spiking depression was just situational, looking at his life compared to how good a time he was having an [place] with his friend. Patient says that the SI is now fully resolved. 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 Does however ask for trazodone q.h.s.. Patient says that mostly he needed to come to the hospital to make sure that he was going to be able to stabilize after his brief SI but as he seems to be feeling better, he thinks that he will be able to discharge soon. Regarding childhood, during which time patient was on mood stabilizers and antipsychotics, it is not clear what was going on at that time but patient has been off medications for over a decade reportedly without troubles, psychosis or ramiro. Plan: CV Q 15 minute checks Trazodone scheduled q.h.s. Patient is considering other medications for depression anxiety Patient educated on: diagnosis and medication risk/benefits Informed Consent: understands Reason for continued inpatient stay Substantial Risk for: rapid decompensation Statement Statement: I have reviewed the history and physical and performed a pertinent examination on my patient. No changes have occurred unless specified. If the History and Physical was not performed prior to admission, the Hospitalist's service will be consulted for completing the admission physical. Time Spent With Patient Time: Total time managing care of this patient today ____ minutes.
[2025-01-26 10:36] LABS: Hemoglobin A1C 146.5098 umol/L; Total Hemoglobin (HGBA1C) 3894.9571 umol/L
[2025-01-26 10:52] LABS: Alanine Aminotransferase 80 U/L (0-40); Albumin Level 4.1 g/dL (3.5-5.0); Alkaline Phosphatase 73 U/L (39-117); Anion Gap 10 (12-20); Aspartate Amino Transferase 37 U/L (5-37); Blood Urea Nitrogen 11 mg/dL (9-16); Calcium 8.8 mg/dL (8.4-10.2); Carbon Dioxide 27 mmol/L (22-29); Chloride 107 mmol/L (96-108); Cholesterol 204 mg/dL (<200); Creatinine Clr Calc Pharmacy 190.2; Estimated Glomerular Filt Rate > 60; HDL Cholesterol 40 mg/dL (>40); Potassium 4.3 mmol/L (3.3-5.1); Sodium 140 mmol/L (135-145); Total Protein 6.8 g/dL (6.5-8.0); Triglycerides 176 mg/dL (<150)
--- NOTE | 2025-01-26 10:53 | HO.PM.IMCN ---
History of Present Illness Data of Consult Service Date: 01/26/25 Requesting physician: Ric Asif Primary Care Provider: Unknown Physician HPI This is a 34-year-old male with a history of HTN, mild intermittent asthma who was admitted to for suicidal ideation. The hospitalists were asked to see him in consultation for routine medical consultation. Patient has no active medical issues at this time. Review of Systems Review of Systems: Yes all other systems are reviewed and are negative Constitutional: Constitutional: Denies chills and Denies fever(s) ENT: Denies dizziness Cardiovascular: Cardiovascular: Denies chest pain and Denies palpitations Neurologic: Denies dizziness Endocrine: Endocrine: Denies palpitations [facility] Medical History (Updated 01/26/25 @ 11:12 by GERMANIA Hunt) HTN (hypertension) Social History Household Members: None Housing: Homeless Do you presently have visiting nurse or other home services: No Patient Tobacco Use Status: Former Tobacco user Tobacco use type: Cigarette Years Smoked: 18 Smoked in Last 30 Days: No e-Cigarette/Vaping Use: Never Used Patient Interested in Nicotine Replacement: No Patient Given Instructions on How to Stop Smoking: No Second Hand Smoke Exposure: No Currently Displaying Signs/Symptoms of Drug Intoxication Withdrawal: No Have you been hit, kicked, punched, or otherwise hurt by someone within the past year? If so, by whom?: No Do you feel safe in your current relationship?: No Current Relationship Is there a partner from a previous relationship who is making you feel unsafe now?: No Are you made to feel afraid or neglected: No Spiritual Healthcare Practices: denies Mosque Healthcare Practices: denies Cultural Healthcare Practices: denies Advance Directives: No Advance Directives Information Provided: Yes Do you have thoughts of harming others: None Do you have a plan to hurt others: No Plan Recently lost weight without trying: No Nutrition Risks: No Nutritional Risk Poor oral hygiene: Yes Meds Allergies Allergy/AdvReac Type Severity Reaction Status Date / Time amantadine Allergy Unknown Verified 01/25/25 17:59 divalproex sodium (From Allergy Unknown Verified 01/25/25 17:59 Depakote) risperidone Allergy Unknown Verified 01/25/25 17:59 Active Medications: Current Medications Acetaminophen (Acetaminophen 325 Mg Tablet) 650 mg PO Q6H PRN PRN Reason: Headache/Pain, Scale 1-10 Al Hydroxide/Mg Hydroxide (Magnesium Hydrox/Alum Hydrox 30 Ml Oral.Susp) 30 ml PO Q6H PRN PRN Reason: Heartburn/Nausea Diphenhydramine HCl (Diphenhydramine Hcl 25 Mg Capsule) 50 mg PO BEDTIME PRN PRN Reason: insomnia Hydroxyzine HCl (Hydroxyzine Hcl 25 Mg Tablet) 25 mg PO Q6H PRN PRN Reason: mild anxiety Ibuprofen (Ibuprofen 600 Mg Tablet) 600 mg PO Q6H PRN PRN Reason: knee pain Lisinopril (Lisinopril 5 Mg Tablet) 5 mg PO DAILY [facility]; Protocol Last Admin: 01/26/25 08:22 Dose: 5 mg Magnesium Hydroxide (Milk Of Magnesia 30 Ml Oral.Susp) 30 ml PO DAILY PRN PRN Reason: Constipation Melatonin (Melatonin 3 Mg Tablet) 9 mg PO BEDTIME PRN PRN Reason: continued insomnia Nicotine (Nicotine 21 Mg Patch.Td24) 21 mg TRANSDERMA DAILY PRN PRN Reason: smoking cessation Nicotine Polacrilex (Nicotine Polacrilex 2 Mg Gum) 4 mg BUCCAL Q2H PRN PRN Reason: Nicotine Cravings Olanzapine (Olanzapine 5 Mg Tablet) 5 mg PO TID PRN PRN Reason: agitation Trazodone HCl (Trazodone Hcl 50 Mg Tablet) 50 mg PO BEDTIME MRX1 PRN PRN Reason: Insomnia Trazodone HCl (Trazodone Hcl 50 Mg Tablet) 50 mg PO BEDTIME [facility] Home Medications ?Medication ?Instructions ?Recorded ?Confirmed ?Last Taken ?Type diclofenac sodium 1 % topical gel See Rx Instructions .Route .COMPLEX 01/25/25 01/25/25 Unknown History lisinopril 5 mg tablet 5 mg PO DAILY 01/25/25 01/25/25 Unknown History melatonin 5 mg tablet 10 mg PO BEDTIME insomnia 01/25/25 01/25/25 Unknown History omeprazole 20 mg capsule,delayed 20 mg PO ONCE 01/25/25 01/25/25 Unknown History release Physical Exam Vital Signs and Narrative: Vital Signs: Last Vital Signs Temp 97.5 F 01/26/25 08:00 Pulse 70 01/26/25 08:00 Resp 16 01/25/25 20:00 BP 139/81 01/26/25 08:00 Pulse Ox 96 01/26/25 08:00 O2 Del Method Room Air 01/26/25 08:00 BMI result Body Mass Index 46.7 Const: General: cooperative, comfortable, no acute distress, alert and awake Nutritional Appearance: average body habitus Orientation/consciousness: patient oriented x3 Resp: Effort & Inspection: normal respiratory effort, able to speak in complete sentences, no respiratory distress and no use of accessory muscles Cardio: Rate: regular rate GI: Inspection: No distended Palpation (GI): Soft to palpation and nontender Neuro: General: patient oriented x3, No moves all extremities and No CN's II-XI intact bilaterally Results Labs 01/26/25 10:08 Labs: Laboratory Results - last 24 hr 01/26/25 10:08 Anion Gap 10 L Estim Creat Clear Calc 190.2 Estimated GFR > 60 Random Glucose 102 Estimat Average Glucose 114 Hemoglobin A1c % 5.6 Calcium 8.8 Total Bilirubin 0.4 AST 37 ALT 80 H Alkaline Phosphatase 73 Total Protein 6.8 Albumin 4.1 Triglycerides 176 H Cholesterol 204 H LDL Cholesterol, Calc 129 H HDL Cholesterol 40 L Assessment and Plan (1) Routine medical exam: Status: Acute Plan This is a 34 year old male with a history of HTN, mild intermittent asthma admitted to for SI. HTN bp controlled continue lisinopril asthma, mild intermittent no acute exacerbation Thank you for allowing us to participate in the care of this patient. There are no acute medical issues at this time.
[2025-01-26 19:44] VITALS: BP 154/87; PULSE 71; RESP 16; TEMP 36.4; O2SAT 97
[2025-01-27 08:00] VITALS: BP 150/87; PULSE 72; TEMP 36.2; O2SAT 94
--- NOTE | 2025-01-27 12:24 | HO.PSYCHPN ---
Subjective Subjective Date of Service: 01/27/25 Reason For Visit: SI Interim History: Met with patient; discussed with team Patient remains improved and feeling close back to his regular self. Patient received news that his 80-year-old cousin that his grandmother is now in hospice/comfort care, both news items making him sad. However but he feels stable, no SI. Patient slept well using Benadryl; does not feel the need for medication. Talked about dystrophic toenails and patient says he will contact his PCP for rare referral to a behavior management specialist Mental Status Exam Mental Status Exam Narrative: Pt is alert and oriented; behavior is cooperative, more social and out in the milieu, calm; patient is not in distress; dressed in casual attire, adeqaute hygiene and grooming; sad and affect congruent; eye contact appropriate; Speech is normal rate, volume and prosody and not pressured; no psychomotor retardation present; thought process is organized and goal directed; Thought content is on of cousin, ill grandmother; otherwise pertinent to relevant topics and without any delusional content, paranoid ideations or grandiosity; denies any SI/HI. Denies AVH and there is no evidence of perceptual disturbance. Patients insight and judgment fair Diagnostics Vital Signs (24Hr): Vital Signs - 24 hr 01/26/25 19:44 01/27/25 08:00 Temperature 97.6 F 97.2 F Pulse Rate 71 72 Respiratory Rate 16 Blood Pressure 154/87 H 150/87 H Pulse Oximetry 97 94 Oxygen Delivery Method Room Air Room Air BMI result Body Mass Index 46.7 Labs 01/26/25 10:08 Labs: Laboratory Results - last 48 hr 01/26/25 10:08 Sodium 140 Potassium 4.3 Chloride 107 Carbon Dioxide 27 Anion Gap 10 L BUN 11 Creatinine 0.86 Estim Creat Clear Calc 190.2 Estimated GFR > 60 Random Glucose 102 Estimat Average Glucose 114 Hemoglobin A1c % 5.6 Calcium 8.8 Total Bilirubin 0.4 AST 37 ALT 80 H Alkaline Phosphatase 73 Total Protein 6.8 Albumin 4.1 Triglycerides 176 H Cholesterol 204 H LDL Cholesterol, Calc 129 H HDL Cholesterol 40 L TSH 0.49 Medications Medications Current Medications Acetaminophen (Acetaminophen 325 Mg Tablet) 650 mg PO Q6H PRN PRN Reason: Headache/Pain, Scale 1-10 Al Hydroxide/Mg Hydroxide (Magnesium Hydrox/Alum Hydrox 30 Ml Oral.Susp) 30 ml PO Q6H PRN PRN Reason: Heartburn/Nausea Diphenhydramine HCl (Diphenhydramine Hcl 25 Mg Capsule) 50 mg PO BEDTIME PRN PRN Reason: insomnia Last Admin: 01/26/25 21:11 Dose: 50 mg Hydroxyzine HCl (Hydroxyzine Hcl 25 Mg Tablet) 25 mg PO Q6H PRN PRN Reason: mild anxiety Ibuprofen (Ibuprofen 600 Mg Tablet) 600 mg PO Q6H PRN PRN Reason: knee pain Last Admin: 01/26/25 21:11 Dose: 600 mg Lisinopril (Lisinopril 5 Mg Tablet) 5 mg PO DAILY [facility]; Protocol Last Admin: 01/27/25 09:03 Dose: 5 mg Magnesium Hydroxide (Milk Of Magnesia 30 Ml Oral.Susp) 30 ml PO DAILY PRN PRN Reason: Constipation Melatonin (Melatonin 3 Mg Tablet) 9 mg PO BEDTIME PRN PRN Reason: continued insomnia Nicotine (Nicotine 21 Mg Patch.Td24) 21 mg TRANSDERMA DAILY PRN PRN Reason: smoking cessation Nicotine Polacrilex (Nicotine Polacrilex 2 Mg Gum) 4 mg BUCCAL Q2H PRN PRN Reason: Nicotine Cravings Olanzapine (Olanzapine 5 Mg Tablet) 5 mg PO TID PRN PRN Reason: agitation Allergies Allergies Allergy/AdvReac Type Severity Reaction Status Date / Time amantadine Allergy Unknown Verified 01/25/25 17:59 divalproex sodium (From Allergy Unknown Verified 01/25/25 17:59 Depakote) risperidone Allergy Unknown Verified 01/25/25 17:59 trazodone Allergy Unknown Verified 01/26/25 16:45 Assessment & Plan Assessment & Plan (1) MDD (major depressive disorder), recurrent episode, moderate: Status: Acute Code(s): F33.1 - Major depressive disorder, recurrent, moderate Plan Patient is a 34-year-old male with history of depression, anxiety, Level 1 sex offender, who presents for SI. Patient has not been on medications since adolescence. He reports history of depression and anxiety over the past years but said he has been able to cope with it without medications and that it is overall mild to moderate.? A week ago he went to visit his friend in [place] and thoroughly enjoyed himself.? Upon return however his depression spiked as he compared his life here in [place], where he is homeless, to his experience in [place]. Patient said he thinking about all his problems started having suicidal thoughts; he had brief AH had the thought what if I just ended my life right now? he says he started walking to the bridge, considering jumping but his father held him back.? He reports that he realized he did not want to but that he needed help so self presented to the ED. patient currently denies any SI now. Patient denies history of manic episodes and adulthood; denies drug or alcohol use; denies AVH or paranoid ideation Formulation/clinical reasoning: Patient reports ongoing [id number] depression; says however that he is typically able to cope with it and that he thinks this spiking depression was just situational, looking at his life compared to how good a time he was having an [place] with his friend. Patient says that the SI is now fully resolved. 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 Does however ask for trazodone q.h.s.. Patient says that mostly he needed to come to the hospital to make sure that he was going to be able to stabilize after his brief SI but as he seems to be feeling better, he thinks that he will be able to discharge soon. Regarding childhood, during which time patient was on mood stabilizers and antipsychotics, it is not clear what was going on at that time but patient has been off medications for over a decade reportedly without troubles, psychosis or ramiro. Hospital course: 01/27 Patient remains improved and feeling close back to his regular self. Patient received news that his 80-year-old cousin that his grandmother is now in hospice/comfort care, both news items making him sad. However but he feels stable, no SI. Patient slept well using Benadryl; does not feel the need for medication. - Talked about dystrophic toenails and patient says he will contact his PCP for rare referral to a behavior management specialist Plan: CV Q 15 minute checks Benadryl q.h.s. DC trazodone; patient has allergy Patient is considering other medications for depression anxiety Patient educated on: diagnosis and medication risk/benefits Informed Consent: understands Reason for continued inpatient stay Substantial Risk for: stable for discharge Time Spent With Patient Time: Total time managing care of this patient today ____ minutes.
[2025-01-27 19:45] VITALS: BP 155/81; PULSE 103; RESP 18; TEMP 37.2; O2SAT 96
[2025-01-28 08:13] VITALS: BP 168/112; PULSE 99; RESP 16; TEMP 36.9; O2SAT 98
[2025-01-28 20:00] VITALS: BP 140/90; PULSE 119; RESP 20; TEMP 36.4; O2SAT 96
--- NOTE | 2025-01-28 22:17 | P.PNPSI_ITS ---
Subjective Subjective Date of Service: 01/28/25 Reason For Visit: SI Subjective Notes: Conditional Voluntary Healthcare Proxy: No Guardianship: No Medical Problems Affecting Mental Status: No Interim History: Medical record and nursing notes reviewed; case discussed during rounds with team/nursing staff, and met with patient for supportive therapy/psychoeducation, as well as medication management. Patient slept well, good appetite a little too good . Compliant with med for medical condition but has no psychotropic meds scheduled. Discuss with patient in length deferent times throughout the day regarding antidepressant and [place]. However, he made decision not to start on meds. he has a intake appointment with OP provider on Tuesday at 1030. However, his grandmother from his dad today. He was not like himself earlier today when report to nursing staff but feels much better as the day goes by being around with good group of peers in the kitchen and attended groups. Report anxiety is less and better in the afternoon and feeling sad but depressed d/t the news. Reviewed with patient regarding mes trial hx. Report did well with [place] but did not like Blood work and does not want to restart it now. Medication Compliance: Yes Side effects from medications: No Attending Groups: Yes Review of Systems Acute medical concerns: No Medical Review of Systems: unchanged Review of Systems Review of Systems Constitutional: Denies fatigue and Denies fever(s) Cardiovascular: Denies chest pain and Denies dyspnea Respiratory: Denies dyspnea Gastrointestinal: Denies abdominal pain Psychiatric: denies suicidal ideation Endocrine: Denies fatigue Yes all other systems are reviewed and are negative Mental Status Exam Mental Status Exam Narrative: Pt is alert and oriented; behavior is cooperative, more social and out in the milieu, calm; patient is not in distress; dressed in casual attire, adeqaute hygiene and grooming; sad and affect congruent; eye contact appropriate; Speech is normal rate, volume and prosody and not pressured; no psychomotor retardation present; thought process is organized and goal directed; Thought content is on of of grandmother, ; otherwise pertinent to relevant topics and without any delusional content, paranoid ideations or grandiosity; denies any SI/HI. Denies AVH and there is no evidence of perceptual disturbance. Patients insight and judgment fair Diagnostics Vital Signs (24Hr): Vital Signs - 24 hr 01/28/25 08:13 01/28/25 20:00 Temperature 98.4 F 97.5 F Pulse Rate 99 119 H Respiratory Rate 16 20 Blood Pressure 168/112 H 140/90 H Pulse Oximetry 98 96 Oxygen Delivery Method Room Air Room Air BMI result Body Mass Index 46.7 Labs 01/26/25 10:08 Medications Medications Current Medications Acetaminophen (Acetaminophen 325 Mg Tablet) 650 mg PO Q6H PRN PRN Reason: Headache/Pain, Scale 1-10 Al Hydroxide/Mg Hydroxide (Magnesium Hydrox/Alum Hydrox 30 Ml Oral.Susp) 30 ml PO Q6H PRN PRN Reason: Heartburn/Nausea Diphenhydramine HCl (Diphenhydramine Hcl 25 Mg Capsule) 50 mg PO BEDTIME PRN PRN Reason: insomnia Last Admin: 01/27/25 23:05 Dose: 50 mg Hydroxyzine HCl (Hydroxyzine Hcl 25 Mg Tablet) 25 mg PO Q6H PRN PRN Reason: mild anxiety Ibuprofen (Ibuprofen 600 Mg Tablet) 600 mg PO Q6H PRN PRN Reason: knee pain Last Admin: 01/26/25 21:11 Dose: 600 mg Lisinopril (Lisinopril 5 Mg Tablet) 5 mg PO DAILY KIMBERLY; Protocol Last Admin: 01/28/25 08:54 Dose: 5 mg Magnesium Hydroxide (Milk Of Magnesia 30 Ml Oral.Susp) 30 ml PO DAILY PRN PRN Reason: Constipation Melatonin (Melatonin 3 Mg Tablet) 9 mg PO BEDTIME PRN PRN Reason: continued insomnia Nicotine (Nicotine 21 Mg Patch.Td24) 21 mg TRANSDERMA DAILY PRN PRN Reason: smoking cessation Nicotine Polacrilex (Nicotine Polacrilex 2 Mg Gum) 4 mg BUCCAL Q2H PRN PRN Reason: Nicotine Cravings Olanzapine (Olanzapine 5 Mg Tablet) 5 mg PO TID PRN PRN Reason: agitation Allergies Allergies Allergy/AdvReac Type Severity Reaction Status Date / Time amantadine Allergy Unknown Verified 01/25/25 17:59 divalproex sodium (From Allergy Unknown Verified 01/25/25 17:59 Depakote) risperidone Allergy Unknown Verified 01/25/25 17:59 trazodone Allergy Unknown Verified 01/26/25 16:45 Assessment & Plan Assessment & Plan (1) MDD (major depressive disorder), recurrent episode, moderate: Status: Acute Code(s): F33.1 - Major depressive disorder, recurrent, moderate Plan Patient is a 34-year-old male with history of depression, anxiety, Level 1 sex offender, who presents for SI. Patient has not been on medications since adolescence. He reports history of depression and anxiety over the past years but said he has been able to cope with it without medications and that it is overall mild to moderate.? A week ago he went to visit his friend in [place] and thoroughly enjoyed himself.? Upon return however his depression spiked as he compared his life here in [place], where he is homeless, to his experience in [place]. Patient said he thinking about all his problems started having suicidal thoughts; he had brief AH had the thought what if I just ended my life right now? he says he started walking to the bridge, considering jumping but his father held him back.? He reports that he realized he did not want to but that he needed help so self presented to the ED. patient currently denies any SI now. Patient denies history of manic episodes and adulthood; denies drug or alcohol use; denies AVH or paranoid ideation Formulation/clinical reasoning: Patient reports ongoing [id number] depression; says however that he is typically able to cope with it and that he thinks this spiking depression was just situational, looking at his life compared to how good a time he was having an [place] with his friend. Patient says that the SI is now fully resolved. Transportation Maintenance Specialist discussed medications and he is ambivalent, saying he typically has been able to cope without any medications and thinks he might still be able to do so. Does however ask for trazodone q.h.s.. Patient says that mostly he needed to come to the hospital to make sure that he was going to be able to stabilize after his brief SI but as he seems to be feeling better, he thinks that he will be able to discharge soon. Regarding childhood, during which time patient was on mood stabilizers and antipsychotics, it is not clear what was going on at that time but patient has been off medications for over a decade reportedly without troubles, psychosis or ramiro. Hospital course: 01/27 Patient remains improved and feeling close back to his regular self. Patient received news that his 80-year-old cousin that his grandmother is now in hospice/comfort care, both news items making him sad. However but he feels stable, no SI. Patient slept well using Benadryl; does not feel the need for medication. - Talked about dystrophic toenails and patient says he will contact his PCP for rare referral to a senior coldfusion developer. 01/28/25: Patient slept well, good appetite a little too good . Compliant with med for medical condition but has no psychotropic meds scheduled. Discuss with patient in length deferent times throughout the day regarding antidepressant and [place]. However, he made decision not to start on meds. he has a intake appointment with OP provider on Tuesday at 1030. However, his grandmother from his dad today. He was not like himself earlier today when report to nursing staff but feels much better as the day goes by being around with good group of peers in the kitchen and attended groups. Report anxiety is less and better in the afternoon and feeling sad but depressed d/t the news. Reviewed with patient regarding mes trial hx. Report did well with [place] but did not like Blood work and does not want to restart it now. D/t the of his grandmother today, it is not safe to discharge home today or tomorrow as he can be overwhelmed with couple lost of of his loved ones recently . Will give him some time to process the lost. Plan: CV Q 15 minute checks Benadryl q.h.s. DC trazodone; patient has allergy Patient is considering other medications for depression anxiety: declines [place]. Not safe to start on [place] given hx of Bipolar even though he cannot recall what manic behaviors in the past. his mom will know better but she passed. Patient educated on: diagnosis, medication risk/benefits and therapeutic strategies Informed Consent: understands Reason for continued inpatient stay Substantial Risk for: med/psych decompensation Time Spent With Patient Time: Total time managing care of this patient today ____ minutes.
[2025-01-29 08:00] VITALS: BP 138/90; PULSE 82; TEMP 36.4; O2SAT 98
--- NOTE | 2025-01-29 21:41 | HO.PSYCHPN ---
Subjective Subjective Date of Service: 01/29/25 Reason For Visit: SI Subjective Notes: Conditional Voluntary Healthcare Proxy: No Guardianship: No Medical Problems Affecting Mental Status: No Interim History: Medical record and nursing notes reviewed; case discussed during rounds with team/nursing staff, and met with patient for supportive therapy/psychoeducation, as well as medication management. Slept well, no issue with appetite. Compliant with medications. Reports he was up x1 due to nightmare but can not recall what the nightmare was about, where he was able to fall back to sleep. Denies depression or anxiety. Attended groups, visible in common areas, he reports getting supports here from peers and staff, as well as the support from outside of the hospital. mixed livestock farm worker refer patient to outpatient services, and also provide patient with tents information in [place] as patient will return to leave in the tent after discharge. He also told protective services social worker that he knows the smoke shop the person so if he wants to go to the long-term he will contact that person. He reported that he was banned from the building where he is dad is staying as he not supposed to be there. Patient feeling safe for tomorrow discharge. Working on sending medication to prefer pharmacy. Medication Compliance: Yes Side effects from medications: No Attending Groups: Yes Review of Systems Medical Review of Systems: unchanged Review of Systems Review of Systems Constitutional: Denies fatigue and Denies fever(s) Cardiovascular: Denies chest pain and Denies dyspnea Respiratory: Denies dyspnea Gastrointestinal: Denies abdominal pain Psychiatric: denies suicidal ideation Endocrine: Denies fatigue Yes all other systems are reviewed and are negative Mental Status Exam Mental Status Exam Narrative: Pt is alert and oriented; behavior is cooperative,social and out in the milieu, calm; patient is not in distress; dressed in casual attire, adeqaute hygiene and grooming; good and affect congruent; eye contact appropriate; Speech is normal rate, volume and prosody and not pressured; no psychomotor retardation present; thought process is organized and goal directed; Thought content is on treatment and discharge, ; otherwise pertinent to relevant topics and without any delusional content, paranoid ideations or grandiosity; denies any SI/HI. Denies AVH and there is no evidence of perceptual disturbance. Patients insight and judgment fair Diagnostics Vital Signs (24Hr): Vital Signs - 24 hr 01/29/25 08:00 Temperature 97.5 F Pulse Rate 82 Blood Pressure 138/90 H Pulse Oximetry 98 Oxygen Delivery Method Room Air BMI result Body Mass Index 46.7 Labs 01/26/25 10:08 Medications Medications Current Medications Acetaminophen (Acetaminophen 325 Mg Tablet) 650 mg PO Q6H PRN PRN Reason: Headache/Pain, Scale 1-10 Al Hydroxide/Mg Hydroxide (Magnesium Hydrox/Alum Hydrox 30 Ml Oral.Susp) 30 ml PO Q6H PRN PRN Reason: Heartburn/Nausea Diphenhydramine HCl (Diphenhydramine Hcl 25 Mg Capsule) 50 mg PO BEDTIME PRN PRN Reason: insomnia Last Admin: 01/28/25 22:17 Dose: 50 mg Hydroxyzine HCl (Hydroxyzine Hcl 25 Mg Tablet) 25 mg PO Q6H PRN PRN Reason: mild anxiety Ibuprofen (Ibuprofen 600 Mg Tablet) 600 mg PO Q6H PRN PRN Reason: knee pain Last Admin: 01/28/25 22:27 Dose: 600 mg Lisinopril (Lisinopril 5 Mg Tablet) 5 mg PO DAILY KIMBERLY; Protocol Last Admin: 01/29/25 08:56 Dose: 5 mg Magnesium Hydroxide (Milk Of Magnesia 30 Ml Oral.Susp) 30 ml PO DAILY PRN PRN Reason: Constipation Melatonin (Melatonin 3 Mg Tablet) 9 mg PO BEDTIME PRN PRN Reason: continued insomnia Nicotine (Nicotine 21 Mg Patch.Td24) 21 mg TRANSDERMA DAILY PRN PRN Reason: smoking cessation Nicotine Polacrilex (Nicotine Polacrilex 2 Mg Gum) 4 mg BUCCAL Q2H PRN PRN Reason: Nicotine Cravings Olanzapine (Olanzapine 5 Mg Tablet) 5 mg PO TID PRN PRN Reason: agitation Allergies Allergies Allergy/AdvReac Type Severity Reaction Status Date / Time amantadine Allergy Unknown Verified 01/25/25 17:59 divalproex sodium (From Allergy Unknown Verified 01/25/25 17:59 Depakote) risperidone Allergy Unknown Verified 01/25/25 17:59 trazodone Allergy Unknown Verified 01/26/25 16:45 Assessment & Plan Assessment & Plan (1) MDD (major depressive disorder), recurrent episode, moderate: Status: Acute Code(s): F33.1 - Major depressive disorder, recurrent, moderate Plan Patient is a 34-year-old male with history of depression, anxiety, Level 1 sex offender, who presents for SI. Patient has not been on medications since adolescence. He reports history of depression and anxiety over the past years but said he has been able to cope with it without medications and that it is overall mild to moderate.? A week ago he went to visit his friend in [place] and thoroughly enjoyed himself.? Upon return however his depression spiked as he compared his life here in [place], where he is homeless, to his experience in [place]. Patient said he thinking about all his problems started having suicidal thoughts; he had brief AH had the thought what if I just ended my life right now? he says he started walking to the bridge, considering jumping but his father held him back.? He reports that he realized he did not want to but that he needed help so self presented to the ED. patient currently denies any SI now. Patient denies history of manic episodes and adulthood; denies drug or alcohol use; denies AVH or paranoid ideation Formulation/clinical reasoning: Patient reports ongoing [id number] depression; says however that he is typically able to cope with it and that he thinks this spiking depression was just situational, looking at his life compared to how good a time he was having an [place] with his friend. Patient says that the SI is now fully resolved. Professor Of Mechanical Engineering discussed medications and he is ambivalent, saying he typically has been able to cope without any medications and thinks he might still be able to do so. Does however ask for trazodone q.h.s.. Patient says that mostly he needed to come to the hospital to make sure that he was going to be able to stabilize after his brief SI but as he seems to be feeling better, he thinks that he will be able to discharge soon. Regarding childhood, during which time patient was on mood stabilizers and antipsychotics, it is not clear what was going on at that time but patient has been off medications for over a decade reportedly without troubles, psychosis or ramiro. Hospital course: 01/27 Patient remains improved and feeling close back to his regular self. Patient received news that his 80-year-old cousin that his grandmother is now in hospice/comfort care, both news items making him sad. However but he feels stable, no SI. Patient slept well using Benadryl; does not feel the need for medication. - Talked about dystrophic toenails and patient says he will contact his PCP for rare referral to a corporate tax manager. 01/28/25: Patient slept well, good appetite a little too good . Compliant with med for medical condition but has no psychotropic meds scheduled. Discuss with patient in length deferent times throughout the day regarding antidepressant and [place]. However, he made decision not to start on meds. he has a intake appointment with OP provider on Tuesday at 1030. However, his grandmother from his dad today. He was not like himself earlier today when report to nursing staff but feels much better as the day goes by being around with good group of peers in the kitchen and attended groups. Report anxiety is less and better in the afternoon and feeling sad but depressed d/t the news. Reviewed with patient regarding mes trial hx. Report did well with [place] but did not like Blood work and does not want to restart it now. D/t the of his grandmother today, it is not safe to discharge home today or tomorrow as he can be overwhelmed with couple lost of of his loved ones recently . Will give him some time to process the lost. 01/29/25: Slept well, no issue with appetite. Compliant with medications. Reports he was up x1 due to nightmare but can not recall what the nightmare was about, where he was able to fall back to sleep. Denies depression or anxiety. Attended groups, visible in common areas, he reports getting supports here from peers and staff, as well as the support from outside of the hospital. mixed livestock farm worker refer patient to outpatient services, and also provide patient with tents information in [place] as patient will return to leave in the tent after discharge. He also told protective services social worker that he knows the smoke shop the person so if he wants to go to the long-term he will contact that person. He reported that he was banned from the building where he is dad is staying as he not supposed to be there. Patient feeling safe for tomorrow discharge. Working on sending medication to prefer pharmacy. Plan: CV Q 15 minute checks Benadryl q.h.s. DC trazodone; patient has allergy Patient is considering other medications for depression anxiety: declines [place]. Not safe to start on [place] given hx of Bipolar even though he cannot recall what manic behaviors in the past. his mom will know better but she passed. Patient educated on: diagnosis, medication risk/benefits and therapeutic strategies Informed Consent: understands Reason for continued inpatient stay Substantial Risk for: med/psych decompensation Time Spent With Patient Time: Total time managing care of this patient today ____ minutes.
[2025-01-29 21:48] VITALS: BP 136/90; PULSE 121; RESP 18; TEMP 36.3; O2SAT 97
[2025-01-30 08:00] VITALS: BP 140/82; PULSE 70; TEMP 36.9; O2SAT 98
--- NOTE | 2025-01-30 09:46 | PM.PSYDC ---
DS: Providers Provider Date of Service: 01/30/25 Date of admission: 01/25/25 14:11 Date of discharge: 01/30/25 Primary care physician: Unknown Physician Attending physician on admission: Ric Asif Consults: 01/25/25 18:01 Consult to Hospitalist Routine Comment: Consulting Provider: [facility] [place] Hospitalists Reason For Exam: admission physical Discharging clinician: Sandhya Logan DS: Diagnosis Discharge Diagnosis (1) MDD (major depressive disorder), recurrent episode, moderate: Status: Acute DS: Medications Discharge Medications Home Medications: Home Medications ?Medication ?Instructions ?Recorded ?Confirmed diclofenac sodium 1 % topical gel See Rx Instructions .Route .COMPLEX 01/25/25 01/25/25 Previous Rx's ?Medication ?Instructions ?Recorded diphenhydramine HCl 25 mg capsule 50 mg (2 x 25 mg) PO BEDTIME PRN 01/29/25 (Banophen) insomnia #30 caps ibuprofen 600 mg tablet 600 mg PO Q6H PRN knee pain #60 01/29/25 tabs lisinopril 5 mg tablet 5 mg PO DAILY HTN #30 tabs 01/29/25 Mental Status Exam Mental Status Exam Narrative: Patient presents well-groomed, casually dressed. Affect is euthymic with full range. Speech is clear and coherent. Thought process is linear and logical. Thought content is appropriate and relevant. Patient denies suicidal or homicidal ideation intent or plan. No overt psychotic symptoms elicited. Insight is good. Judgment is good. Data Data Completed and Pending Completed studies during hospitalization [Text1]: 01/26/25 10:08 Sodium 140 Potassium 4.3 Chloride 107 Carbon Dioxide 27 Anion Gap 10 L BUN 11 Creatinine 0.86 Estim Creat Clear Calc 190.2 Estimated GFR > 60 Random Glucose 102 Estimat Average Glucose 114 Hemoglobin A1c % 5.6 Calcium 8.8 Total Bilirubin 0.4 AST 37 ALT 80 H Alkaline Phosphatase 73 Total Protein 6.8 Albumin 4.1 Triglycerides 176 H Cholesterol 204 H LDL Cholesterol, Calc 129 H HDL Cholesterol 40 L TSH 0.49 DS: Summary Hospital Course Hospital Course: HPI: Patient is a 34-year-old male with history of depression, anxiety, Level 1 sex offender, who presents for SI. Patient has not been on medications since adolescence. He reports history of depression and anxiety over the past years but said he has been able to cope with it without medications and that it is overall mild to moderate.? A week ago he went to visit his friend in [place] and thoroughly enjoyed himself.? Upon return however his depression spiked as he compared his life here in [place], where he is homeless, to his experience in [place]. Patient said he thinking about all his problems started having suicidal thoughts; he had brief AH had the thought what if I just ended my life right now? he says he started walking to the bridge, considering jumping but his father held him back.? He reports that he realized he did not want to but that he needed help so self presented to the ED. patient currently denies any SI now. Patient denies history of manic episodes and adulthood; denies drug or alcohol use; denies AVH or paranoid ideation Formulation/clinical reasoning: Patient reports ongoing [id number] depression; says however that he is typically able to cope with it and that he thinks this spiking depression was just situational, looking at his life compared to how good a time he was having an [place] with his friend. Patient says that the SI is now fully resolved. Pay Agent discussed medications and he is ambivalent, saying he typically has been able to cope without any medications and thinks he might still be able to do so. Does however ask for trazodone q.h.s.. Patient says that mostly he needed to come to the hospital to make sure that he was going to be able to stabilize after his brief SI but as he seems to be feeling better, he thinks that he will be able to discharge soon. Regarding childhood, during which time patient was on mood stabilizers and antipsychotics, it is not clear what was going on at that time but patient has been off medications for over a decade reportedly without troubles, psychosis or ramiro. Hospital course: 01/27 Patient remains improved and feeling close back to his regular self. Patient received news that his 80-year-old cousin that his grandmother is now in hospice/comfort care, both news items making him sad. However but he feels stable, no SI. Patient slept well using Benadryl; does not feel the need for medication. - Talked about dystrophic toenails and patient says he will contact his PCP for rare referral to a bellows charger assembler. 01/28/25: Patient slept well, good appetite a little too good . Compliant with med for medical condition but has no psychotropic meds scheduled. Discuss with patient in length deferent times throughout the day regarding antidepressant and [place]. However, he made decision not to start on meds. he has a intake appointment with OP provider on Tuesday at 1030. However, his grandmother from his dad today. He was not like himself earlier today when report to nursing staff but feels much better as the day goes by being around with good group of peers in the kitchen and attended groups. Report anxiety is less and better in the afternoon and feeling sad but depressed d/t the news. Reviewed with patient regarding mes trial hx. Report did well with [place] but did not like Blood work and does not want to restart it now. D/t the of his grandmother today, it is not safe to discharge home today or tomorrow as he can be overwhelmed with couple lost of of his loved ones recently . Will give him some time to process the lost. 01/29/25: Slept well, no issue with appetite. Compliant with medications. Reports he was up x1 due to nightmare but can not recall what the nightmare was about, where he was able to fall back to sleep. Denies depression or anxiety. Attended groups, visible in common areas, he reports getting supports here from peers and staff, as well as the support from outside of the hospital. body and fender worker refer patient to outpatient services, and also provide patient with tents information in [place] as patient will return to leave in the tent after discharge. He also told social media editor that he knows the smoke shop the person so if he wants to go to the senior care he will contact that person. He reported that he was banned from the building where he is dad is staying as he not supposed to be there. Patient feeling safe for tomorrow discharge. Working on sending medication to [facility]. 01/30/25: patient feels safe and ready for discharge. Medication reviewed with patient and [facility]. Dad will pick patient up. Patient is not interesting taking mood stabilizer and will FLU with OP provider. Time spent discussing smoking cessation with patient: 3 to 10 minutes Status at Discharge Cognitive/behavioral status at discharge: CONDITION ON DISCHARGE: CURRENT STATUS IT RELATES TO ADMISSION CRITERIA: Stable, improved. Improvements in depression, anxiety, and suicidal ideation. Improvements in sleep, energy, and appetite. and no hallucination or paranoia/delusional thought. Functional status at discharge: independent ambulation Overall status at discharge: patient is back to baseline Time Spent with Patient Time attestation: Total time managing care of this patient today ____ minutes. Time spent: Greater than 30 minutes Discharge Plan Discharge Anticipated Discharge Date/Time: 01/30/25 09:45 Patient Disposition: Xfer Other Discharge Diagnosis: MDD, HTN Referrals: [facility] Psychiatry with Ashlyn Adkins [Other] - 02/18/25 10:40 am [facility] Therapy with Edward Vimal [Other] - 1 Day Referral Note: Social work left a message for Edward. Please follow up with him for your next appointment. [facility] [Other] - 1 Week [employer] [facility] [employer] [facility] [Other] - 1 Week Referral Note: They offer community case management to support with community resources and housing applications. [facility] [Other] - 1 Week Referral Note: Open Hours Tuesdays 9:00am ? 1:00pm Wednesdays 9:00am ? 1:00pm 9:00am ? 1:00pm Fridays 9:00am ? 1:00pm Saturdays 10:00am ? 1:00pm Physician,Unknown J [Primary Care Provider, Medical] - 1 Week Referral Note: Pt declined f/u appt. Discharge Medications: New diphenhydramine HCl [Banophen] 25 mg Capsule 50 mg PO BEDTIME PRN (Reason: insomnia) Qty: 30 0RF ibuprofen 600 mg Tablet 600 mg PO Q6H PRN (Reason: knee pain) Qty: 60 0RF Continued diclofenac sodium 1 % gel See Rx Instructions .ROUTE .COMPLEX Rx Instructions: apply to affected area lisinopril 5 mg tablet 5 mg PO DAILY Qty: 30 0RF Discontinued omeprazole 20 mg capsule,delayed release(DR/EC) 20 mg PO ONCE melatonin 5 mg tablet 10 mg PO BEDTIME Discharge Orders: Discharge Order (Routine); Ordered 01/30/25 Ordered By: Sandhya Logan Diet: Regular diet Activity on Discharge: No Restrictions Stand Alone Forms: Patient Portal Discharge page, Community Support Print Language: Slovak Care Plan Goals: Maintain mood and safe behaviors Take medications as prescribed Continue to pursue sobriety Practice coping skills Continue with outpatient providers and reach out to them as needed Health Concerns: Mood stability and behaviors Sobriety Plan of Treatment: Follow up with your PCP, psychiatric provider and other outpatient providers regarding above concerns Take medications as prescribed Assessment: Assessment: Risk assessment at time of discharge: Patient was interviewed prior to discharge and found to be fully oriented and without any SI or HI. Patient has improved insight and judgment and wants to continue treatment. Patient is not in imminent risk of harm to self or others and has a safety plan that includes presenting to the closest ER or calling 911 if feeling unsafe. Patient has been observed closely by nursing and unit staff throughout admission; patient has not engaged in any behaviors that suggest dangerousness to self or others and has demonstrated appropriate behaviors and impulse control Discharge Date/Time: 01/30/25 11:14
== END 2025-01-30 11:14 | disposition other institution (70) | DRG 751 ==
PROVIDERS: Admitting Provider Psychiatry & Neurology Psychiatry; Visit Provider Psychiatry & Neurology Psychiatry
DX: F33.1 Major depressive disorder, recurrent, moderate (principal); R45.851 Suicidal ideations; I10 Essential (primary) hypertension; Z63.4 Disappearance and death of family member; J45.20 Mild intermittent asthma, uncomplicated; Z87.891 Personal history of nicotine dependence; Z79.899 Other long term (current) drug therapy
CPT/HCPCS: 36415; 80053; 80061; 83036; 84443

== ENCOUNTER → 2025-01-25 14:11 | Outpatient (BNV) | payer OTHER, SELFPAY | PROVIDERS: Admitting Provider Psychiatry & Neurology Psychiatry; Visit Provider Physician Assistant Medical | DX: Z00.00 Encounter for general adult medical examination without abnormal findings (principal) | CPT/HCPCS: 99429 ==

== ENCOUNTER → 2025-01-25 14:11 | Outpatient (BNV) | payer OTHER, SELFPAY | PROVIDERS: Admitting Provider Psychiatry & Neurology Psychiatry; Visit Provider Psychiatry & Neurology Psychiatry | DX: F33.1 Major depressive disorder, recurrent, moderate (principal) | CPT/HCPCS: 99232 ==